=== PATIENT | female | born 1975 | race Caucasian/White ===

== ENCOUNTER 2017-03-03 20:30 | Emergency (ER) | payer OTHER ==
[~2017-03-03] VITALS: Ht 165.1 cm; Wt 81.8 kg
[2017-03-03 21:16] LABS: CLARITY,URINE Clear (Clear); COLOR,URINE Yellow (Yellow); GLUCOSE, URINE Negative (Neg); KETONES,URINE Negative (Neg); LEUKOCYTE ESTERASE ,URINE Trace (Neg); NITRITES, URINE Negative (Neg); OCCULT BLOOD,URINE Trace (Neg); PH,URINE 6.5 (4.8-8.0); PROTEIN,URINE Negative (Neg); URINE HCG NEGATIVE (NEG)
[2017-03-03 21:22] LABS: UA COLLECTION TYPE CLN CATCH MIDSTREAM
[2017-03-03 21:29] LABS: BACTERIA,URINE 1+ /HPF (Neg); RBC,URINE NONE SEEN /HPF (0-2); SQUAMOUS EPITHELIAL CELL,UR MANY /LPF (FEW); WBC,URINE 0-4 /HPF (0-4)
[2017-03-03] MEDS ORDERED: METR500T4 PO (22:13)
[2017-03-03] MEDS ORDERED: TAM75C PO (22:13)
[2017-03-03] MEDS ORDERED: SULF1TAB49 PO (22:13)
[2017-03-03] MEDS ORDERED: FLUC150T66 PO (22:13)
[2017-03-03 22:33] VITALS: BP 120/75
== END 2017-03-03 22:35 | disposition home or self-care (01) ==
LOC: ER 20:32
DX: J11.1 Influenza due to unidentified influenza virus with other respiratory manifestations (principal); L02.411 Cutaneous abscess of right axilla; N76.0 Acute vaginitis; B96.89 Other specified bacterial agents as the cause of diseases classified elsewhere; Z79.899 Other long term (current) drug therapy; Z88.0 Allergy status to penicillin
CPT/HCPCS: 81001; 81025; 99284

== ENCOUNTER 2017-04-25 00:53 | Emergency (ER) | payer MEDICAID, OTHER ==
[~2017-04-25] VITALS: Ht 172.7 cm; Wt 90.3 kg
[2017-04-25] MEDS ORDERED: CLIN-80 PO (01:50)
[2017-04-25] MEDS ORDERED: IBUP-1984 PO (01:50)
[2017-04-25] MEDS ORDERED: ibuprofen tablet 400 MG TABLET PO ONE (01:50)
[2017-04-25] MEDS ORDERED: traMADol 50MG tablet PO ONE (01:50)
[2017-04-25] MEDS ORDERED: TRAM50TA2 PO (01:50)
[2017-04-25 01:59] VITALS: BP 145/81
== END 2017-04-25 02:00 | disposition home or self-care (01) ==
LOC: ER 00:53
DX: H66.92 Otitis media, unspecified, left ear (principal); J02.9 Acute pharyngitis, unspecified; F17.200 Nicotine dependence, unspecified, uncomplicated; F11.10 Opioid abuse, uncomplicated; Z88.0 Allergy status to penicillin
CPT/HCPCS: 99283